=== PATIENT | female | born 1980 | race Caucasian/White ===

== ENCOUNTER 2019-12-28 17:26 | Emergency (ER) | payer OTHER ==
[~2019-12-28] VITALS: Ht 162.6 cm; Wt 52.2 kg
[~2019-12-28 17:26] MED LIST: CIPROFLOXIN HC2.5 M1 OPHTHALMIC
[2019-12-28 17:45] LABS: URINE BILIRUBIN NEGATIVE (Negative); URINE BLOOD TRACE (Negative); URINE CLARITY CLEAR; URINE COLOR YELLOW; URINE GLUCOSE-RANDOM NEGATIVE (Negative); URINE KETONES NEGATIVE (Negative); URINE PROTEIN 1+ (Negative); URINE UROBILINOGEN 0.2 E.U./dl (0.2-1.0)
[2019-12-28 17:47] LABS: URINE LEUKOCYTES-REFLEX 2+ (Negative); URINE NITRITE-REFLEX POSITIVE (Negative)
[2019-12-28 17:52] LABS: MUCUS None Seen strn/LPF (None Seen); SQUAMOUS 4-10 Moderate /LPF (0-3)
[2019-12-28 17:53] LABS: BACTERIA-REFLEX >30 Many /HPF (None Seen); CRYSTALS None Seen /LPF (None Seen); HYALINE CASTS 0-3 Few /LPF (None Seen); URINE RBC 0-2 Rare /HPF (0-2); URINE WBC-REFLEX >25 Many /HPF (0-5)
[2019-12-28] MEDS ORDERED: KEFLEX500 M1 PO (18:11)
[2019-12-28] MEDS ORDERED: PHENERGAN 25 MG25 M1 PO (18:11)
[2019-12-28 18:50] VITALS: BP 114/68
== END 2019-12-28 18:52 | disposition home or self-care (01) ==
LOC: M.ERS 17:26
PROVIDERS: Nurse Practitioner Family
DX: N39.0 Urinary tract infection, site not specified (principal); F17.210 Nicotine dependence, cigarettes, uncomplicated; Z88.5 Allergy status to narcotic agent